=== PATIENT | female | born 1980 | race African-American/Black ===

== ENCOUNTER 2020-09-12 14:09 | Emergency (ER) | payer OTHER ==
[~2020-09-12] VITALS: Ht 160 cm; Wt 82.6 kg
[2020-09-12 14:26] VITALS: BP 123/71
--- NOTE | 2020-09-12 14:46 | NUR ---
39/F presents to ED with c/o of chest pain and shortness of breath x1 month. Patient states she began having intermittent chest pain one month ago that has began to radiate to her right arm along with shortness of breath. Patient states she feels her right arm is numb and she is having trouble using it for daily activities. Patient describing it a sharp, 8/10 pain and also has a "throbbing" headache. Patient states she has been taking BC powder for the pain but has only had minimal relief. Patient placed in gown, vitals on arrival bp 123/71, pulse 82, O2 99%, temp 97.8. Patient denies abdominal pain, nausea, vomiting, diarrhea, dysuria, and hematuria.
[2020-09-12 15:03] LABS: BASOPHILS # (AUTO) 0.1 K/uL (0.00-0.22); BASOPHILS % (AUTO) 0.7 % (0.0-2.0); EOSINOPHILS # (AUTO) 0.2 K/uL (0-0.4); EOSINOPHILS % (AUTO) 2.1 % (0.0-4.0); HEMATOCRIT 31.8 % (36-48); HEMOGLOBIN 10.3 g/dL (12.0-16.0); LYMPHOCYTES # (AUTO) 2.2 K/uL (2.5-16.5); MEAN CORPUSCULAR HEMOGLOBIN 25 pg (27-31); MEAN CORPUSCULAR HGB CONC 32 g/dL (33-37); MEAN CORPUSCULAR VOLUME 76.5 fL (80-94); MONOCYTES # (AUTO) 0.5 K/uL (0.8-1.0); MONOCYTES % (AUTO) 6.3 % (1.7-9.3); NEUTROPHILS # (AUTO) 4.8 K/uL (1.8-7.7); NEUTROPHILS % (AUTO) 61.9 % (42.2-75.2); PLATELET COUNT (AUTO) 328 K/uL (140-450); RED BLOOD CELL COUNT(AUTO) 4.16 MIL/uL (4.20-5.40); WHITE BLOOD COUNT (AUTO) 7.7 K/uL (4.8-10.8)
[2020-09-12 15:22] LABS: ALBUMIN 3.9 g/dL (3.4-5.0); ANION GAP 9.2 (8-16); CARBON DIOXIDE 29.9 mmol/L (21-32); CREATININE 0.7 mg/dL (0.6-1.3); POTASSIUM 4.1 mmol/L (3.5-5.1); TOTAL BILIRUBIN 0.3 mg/dL (0.0-1.0)
[2020-09-12] MEDS ORDERED: ASPIRIN 81 MG TAB.CHEW PO ONE (16:00)
[2020-09-12] MEDS ORDERED: KETOROLAC 30 MG/ML VIAL IM ONE (16:00)
--- NOTE | 2020-09-12 16:00 | NUR ---
Patient resting, on bedside awake overnight monitor, awaiting lab results.
[2020-09-12] MEDS ORDERED: IBUP-1842 PO (17:56)
[2020-09-12 18:11] VITALS: BP 108/64
== END 2020-09-12 18:10 | disposition home or self-care (01) ==
LOC: MED 14:09
DX: D64.9 Anemia, unspecified (principal); R07.89 Other chest pain; R06.02 Shortness of breath; R07.2 Precordial pain; R42 Dizziness and giddiness; Z79.899 Other long term (current) drug therapy; Z98.890 Other specified postprocedural states
CPT/HCPCS: 36415; 71045; 80053; 84484; 85025; 93005; 96372; 99285; J1885